=== PATIENT | male | born 2000 | race Caucasian/White ===

== ENCOUNTER 2020-01-16 18:47 | Emergency (ER) | payer OTHER ==
--- NOTE | 2020-01-16 20:35 | CR ---
Chest: Frontal view of the chest was obtained. Comparison: No previous chest imaging. Soft tissue mass noted adjacent to the right side of the mediastinum measuring approximately 3.8 cm. Lungs otherwise are clear. Heart size and mediastinum are normal. Bony structures are grossly intact. Impression: 1. Finding as noted above. This most likely represents a congenital or developmental anomaly given the patient's age although contrast-enhanced chest CT is recommended to further evaluate. This CT scan can be performed non-emergently if desired. 2. Nothing acute is otherwise seen. Diagnostic code #9 Study was dictated in MDT
--- NOTE | 2020-01-16 20:40 | EDM.PDOC ---
ED HPI GENERAL MEDICAL PROBLEM - General Chief Complaint: ENT Problem Stated Complaint: SORE THROAT, DIFFICULTY SWALLOWING Time Seen by Provider: 01/16/20 19:27 Source of Information: Reports: Patient History Limitations: Reports: No Limitations - History of Present Illness INITIAL COMMENTS - FREE TEXT/NARRATIVE: Patient is a 19-year-old male presenting to the emergency department with complaints of sore throat and throat swelling. Started having sore throat symptoms about 4 days ago. He thought it was just a cold but the pain has been getting progressively worse. Has had some mild nausea but denies any vomiting. Denies any cough or shortness of breath. Denies any abdominal pain. He has no chronic medical conditions. Throat Pain Score (Numeric/FACES): 8 - Related Data Allergies Allergy/AdvReac Type Severity Reaction Status Date / Time No Known Allergies Allergy Verified 01/16/20 19:27 Home Meds: Home Meds busPIRone [Buspar] 10 mg PO BID 01/16/20 [History] lamoTRIgine 25 mg PO BID 01/16/20 [History] Past Medical History Other HEENT History: trached as an premie Cardiovascular History: Reports: None Respiratory History: Reports: Pneumonia, Recurrent Gastrointestinal History: Reports: Chronic Constipation, GERD, Other (See Below) Other Gastrointestinal History: eating disorders Genitourinary History: Reports: Renal Disease Musculoskeletal History: Reports: None Neurological History: Reports: None Psychiatric History: Reports: Anxiety, Bipolar, Depression Endocrine/Metabolic History: Reports: None Hematologic History: Reports: None Immunologic History: Reports: None Oncologic (Cancer) History: Reports: None Dermatologic History: Reports: Eczema - Infectious Disease History Infectious Disease History: Reports: None - Past Surgical History Head Surgeries/Procedures: Reports: None HEENT Surgical History: Reports: Eye Surgery Other HEENT Surgeries/Procedures: muscles repositioned and reattatched Musculoskeletal Surgical History: Reports: None Social & Family History - Family History Family Medical History: Noncontributory Psychiatric: Reports: ADD, ADHD, Anxiety, Bipolar, Depression, Other (See Below) Other Psychiatric Family History: addiction - Tobacco Use Smoking Status *Q: Current Some Day Smoker Years of Tobacco use: 1 Packs/Tins Daily: 0.2 - Caffeine Use Caffeine Use: Reports: Coffee, Energy Drinks, Soda, Tea - Recreational Drug Use Recreational Drug Use: Yes Drug Use in Last 12 Months: Yes Recreational Drug Type: Reports: Marijuana/Hashish Recreational Drug Use Frequency: Daily ED ROS ENT - Review of Systems Review Of Systems: See Below Constitutional: Reports: No Symptoms. Denies: Fever, Chills, Weakness, Fatigue HEENT: Reports: Throat Pain Respiratory: Reports: No Symptoms Cardiovascular: Reports: No Symptoms Endocrine: Reports: No Symptoms GI/Abdominal: Reports: Nausea. Denies: Abdominal Pain, Vomiting : Reports: No Symptoms Musculoskeletal: Reports: No Symptoms Skin: Reports: No Symptoms Neurological: Reports: No Symptoms Psychiatric: Reports: No Symptoms Hematologic/Lymphatic: Reports: No Symptoms Immunologic: Reports: No Symptoms ED EXAM, ENT - Physical Exam Exam: See Below General Appearance: Alert, WD/WN, No Apparent Distress Mouth/Throat: Tonsillar Erythema, Tonsillar Exudates (Small amount to right ton emelina) Respiratory/Chest: No Respiratory Distress, Lungs Clear, Normal Breath Sounds, No Accessory Muscle Use, Chest Non-Tender Cardiovascular: Normal Peripheral Pulses, Regular Rate, Rhythm, No Edema, No Gallop, No JVD, No Murmur, No Rub Neurological: Alert, Oriented, CN II-XII Intact, Normal Cognition, Normal Gait, Normal Reflexes, No Motor/Sensory Deficits Psychiatric: Normal Affect, Normal Mood Skin: Warm, Dry, Intact, Normal Color, No Rash Course - Vital Signs Last Recorded V/S: Last Vital Signs Temp 98.1 F 01/16/20 19:23 Pulse Resp 18 01/16/20 19:23 BP Pulse Ox 99 01/16/20 19:23 - Orders/Labs/Meds Labs: Laboratory Tests 01/16/20 Range/Units 22:30 Monoscreen Positive H (NEGATIVE) Meds: Medications Discontinued Medications Generic Name Dose Route Start Last Admin Trade Name Raven PRN Reason Stop Dose Admin Acetaminophen 650 mg 01/16/20 21:40 01/16/20 21:44 Tylenol PO 01/16/20 21:41 650 mg NOW ONE Administration - Re-Assessments/Exams Free Text/Narrative Re-Assessment/Exam: 01/16/20 22:21 Patient's rapid strep was negative. I have ordered a mono screen, however we will not make him wait for the results of this as it would not change his treatment. Discussed that he is likely has a viral pharyngitis. I did also discussed that his strep swab will be sent for a culture as of this did grow out anything that was not visible on the rapid strep, he will be notified and started on antibiotics at that time. Recommend symptomatic treatment. Discharge instructions as documented. 01/16/20 2345 Attempted to notify the patient of his positive mono results. No answer. Voicemail left to call back. Departure - Departure Time of Disposition: 22:22 Disposition: Home, Self-Care 01 Condition: Good Clinical Impression: Pharyngitis Qualifiers: Pharyngitis/tonsillitis etiology: unspecified etiology Qualified Code(s): J02.9 - Acute pharyngitis, unspecified - Discharge Information *PRESCRIPTION DRUG MONITORING PROGRAM REVIEWED*: No *COPY OF PRESCRIPTION DRUG MONITORING REPORT IN PATIENT PEDRO: No Instructions: Pharyngitis, [id number] Referrals: PCP,None [Primary Care Provider] - Forms: ED Department Discharge Additional Instructions: You were seen in the emergency department today for sore throat. A rapid strep test was done and found to be negative, however, the sample has been sent for culture. If this should grow out a bacteria that did not show up on the rapid strep, he would be notified and start on antibiotics at that time. We have also done a mono screen. This is a virus that can cause sore throat as well as enlargement of the spleen. We will call you with the results of this as well. As we discussed, is likely that you are still suffering from a viral pharyngitis which is essentially a sore throat caused by a virus. Treatment of this is symptomatic. Recommend ibuprofen intermittently as needed for pain. Cold foods and beverages will be soothing to the throat. Chloraseptic throat spray will also help with the pain. Recommend follow-up with your primary care physician next week if symptoms do not improve. Return to the ER as needed. Sepsis Event Note (ED) - Evaluation Sepsis Screening Result: No Definite Risk
[2020-01-16] MEDS ORDERED: Acetaminophen 325 MG Tab PO ONE (21:40)
== END 2020-01-16 22:59 | disposition home or self-care (01) ==
LOC: JD.ED 18:47
DX: J02.9 Acute pharyngitis, unspecified (principal); F17.210 Nicotine dependence, cigarettes, uncomplicated; F31.9 Bipolar disorder, unspecified; F41.9 Anxiety disorder, unspecified; Z79.899 Other long term (current) drug therapy
CPT/HCPCS: 36415; 71045; 86308; 87081; 87430; 99283; A9270; 99282

== ENCOUNTER 2020-06-17 14:25 | Emergency (ER) | payer MEDICAID, OTHER ==
[2020-06-17 15:35] LABS: ACETAMINOPHEN 0 ug/mL (10-30)
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
== END 2020-06-17 16:30 ==
LOC: JD.ED 14:25
DX: F32.9 Major depressive disorder, single episode, unspecified (principal); Z72.0 Tobacco use; Z20.822 Contact with and (suspected) exposure to COVID-19; Z79.899 Other long term (current) drug therapy
CPT/HCPCS: 36415; 80053; 80143; 80179; 80306; 80307; 84443; 85025; 99284; 99285; U0002

== ENCOUNTER 2021-06-20 01:53 | Emergency (ER) | payer OTHER | END 2021-06-20 05:30 | disposition home or self-care (01) | LOC: JD.ED 01:53 | DX: F10.129 Alcohol abuse with intoxication, unspecified (principal); K21.9 Gastro-esophageal reflux disease without esophagitis; Z72.0 Tobacco use; Y90.5 Blood alcohol level of 100-119 mg/100 ml | CPT/HCPCS: 36415; 80053; 80307; 83690; 85025; 99284 ==